=== PATIENT | female | born 1970 | race Caucasian/White ===

== ENCOUNTER 2024-02-28 08:19 | Outpatient (CLI) | payer BC | END 2024-02-28 08:20 | disposition home or self-care (01) | LOC: CSHMRI 08:19 | PROVIDERS: ATTEND Orthopaedic Surgery Hand Surgery | DX: M25.332 Other instability, left wrist (principal); S63.592A Other specified sprain of left wrist, initial encounter; M67.842 Other specified disorders of synovium, left hand ==